=== PATIENT | female | born 2000 | race Caucasian/White ===

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

== ENCOUNTER 2019-02-16 07:30 | Emergency (ER) | payer OTHER ==
[2019-02-16 07:40] VITALS: O2SAT 98
[2019-02-16] MEDS ORDERED: diphenhydrAMINE HCL 50 MG/ML VIAL IV ONE (07:41)
[2019-02-16] MEDS ORDERED: methylPREDNISolone SODIUM SUC 125 MG/2 ML VIAL IV ONE (07:41)
[2019-02-16] MEDS ORDERED: FAMOTIDINE IV PREMIX 20 MG in PREMIX BAG 1 BAG IVPB ONE (07:42)
[2019-02-16] MEDS ORDERED: EPINEPHrine HCL AMP 1 MG/ML AMP SUBCU ONE ×2 (07:42→08:16)
[2019-02-16] MEDS ORDERED: FAMOTIDINE IV PREMIX 50 ML IVPB ONE (07:52)
[2019-02-16] MEDS ORDERED: ONDANSETRON INJ 4 MG/2 ML VIAL ONE (08:00)
[2019-02-16] MEDS ORDERED: ONDANSETRON INJ 4 MG/2 ML VIAL IV ONE (08:01)
--- NOTE | 2019-02-16 08:01 | ED.PDOC ---
History of Present Illness - General Chief Complaint: Allergic Reaction Time Seen by Provider: 02/16/19 07:34 Source: patient - History of Present Illness Initial Comments: 18 y/o F presents to the ED after waking up this am with her face swollen and feeling like it was difficult to swallow. She is currently 39 weeks 3 days and denies any new medications. She currently takes only zofran and thyroid medication. She reports last eating taco soup, but is not aware of anything new or different in that. She denies any new lotions. She has never had a hx of similar episodes in the past and denies a hx of similar sx in her family. Sx currently moderate in severity and nothing the pt has done seems to make sx better or worse. She reports associated nausea and vomiting, which has been normal for her throughout her . Her OB is Dr. Arpit Horton in [place]. Allergies/Adverse Reactions: Allergies NO KNOWN ALLERGY Allergy (Verified 07/09/18 09:58) Home Medications: Ambulatory Orders Levothyroxine Sodium [Synthroid] 175 mcg PO DAILY 12/25/18 Ondansetron Odt [Zofran ODT] 4 mg PO Q4HR PRN #16 tab 12/25/18 Pantoprazole Sodium 40 mg PO DAILY 12/25/18 Review of Systems - Review of Systems Constitutional: Denies: chills, fever EENTM: States: throat swelling, other - facial swelling. Denies: nose congestion Respiratory: Denies: short of breath, wheezing Cardiology: Denies: chest pain, palpitations Gastrointestinal/Abdominal: States: nausea, vomiting. Denies: abdominal pain, diarrhea Genitourinary: States: other - no vaginal bleeding. Denies: dysuria, hematuria Musculoskeletal: Denies: joint pain, muscle pain Skin: Denies: lesions, rash Neurological: Denies: headache, numbness, paresthesia Past Medical History (General) - Patient Medical History Hx Seizures: No Hx Stroke: No Hx Dementia: No Hx Asthma: No Hx of COPD: No Hx Cardiac Disorders: No Hx Congestive Heart Failure: No Hx Pacemaker: No Hx Hypertension: No Hx Thyroid Disease: Yes - Hoshimoto's Hx Diabetes: No Hx Gastroesophageal Reflux: No Hx Renal Disease: No Hx Cancer: No Hx of HIV: No Hx Hepatitis C: No Hx MRSA: No - Vaccination History Hx Tetanus, Diphtheria Vaccination: Yes Hx Influenza Vaccination: No Hx Pneumococcal Vaccination: No - Social History Hx Tobacco Use: Yes Hx Alcohol Use: No Hx Substance Use: No Hx Substance Use Treatment: No Hx Depression: No - Female History Hx Last Menstrual Period: 09/02/16 Patient : Yes Family Medical History - Family History Mother Family History: No Known Living Status: Still Living Physical Exam - Physical Exam General Appearance: Alert Eye Exam: bilateral normal Ears, Nose, Throat: other - edema to the lips, eyelids and tongue. No uvular edema. Tolerating secretions. Neck: full range of motion, supple Respiratory: lungs clear, normal breath sounds, no respiratory distress Cardiovascular/Chest: normal peripheral pulses, no murmur, tachycardia Peripheral Pulses: radial,right: 2+, radial,left: 2+, dorsalis pedis,right: 2+, dorsalis pedis,left: 2+ Gastrointestinal/Abdominal: non tender, other - gravid with fundal height at the xyphoid process. Extremity: normal range of motion, normal inspection Neurologic: no motor/sensory deficits, alert, normal mood/affect, oriented x 3 Skin Exam: normal color, other - no rash Progress - Progress Progress: 02/16/19 07:56 AM Pt has received Epi- feeling like swelling is improving. HR 100, Sats 98% on RA. 8:12 AM Swelling somewhat improved, but still present. Will repeat epi IM. Discussed with pt need for prolonged monitoring and probable transfer to facility with both ICU and OB capability. FHR 138. 08:30 After second IM Epi swelling improved, will continue to monitor while starting transfer process. Pt and family updated on plans and agree. 09:[address] Davis ER physician at [facility], will accept pt transfer. Pt updated on discussions/plans. - Results/Orders Results/Orders: 02/16/19 07:41 IV:Start .ONCE 02/16/19 07:43 Telemetry ONCE Laboratory Results - last 24 hr 02/16/19 02/16/19 08:05 08:05 WBC 11.3 H RBC 4.90 Hgb 13.2 Hct 40.3 MCV 82.2 MCH 27.0 MCHC 32.9 L RDW 13.9 Plt Count 251 MPV 10.2 Absolute Neuts (auto) 7.60 H Absolute Lymphs (auto) 2.60 Absolute Monos (auto) 0.80 Absolute Eos (auto) 0.10 Absolute Basos (auto) 0.10 Neutrophils % 67.9 Lymphocytes % 23.0 Monocytes % 7.4 Eosinophils % 0.9 L Basophils % 0.8 Sodium 138 Potassium 4.0 Chloride 109 Carbon Dioxide 18 L Anion Gap 15.0 BUN 7 Creatinine 0.59 L BUN/Creatinine Ratio 11.9 Random Glucose 90 Serum Osmolality 273.2 L Calcium 8.6 - Consult/PCP Time Called: 08:58 Consult/PCP: Dr. Horton Consult Reason/Comments: Pt OB- recommeds ER to ER transfer to [facility] and he will consult on the pt Departure - Departure Clinical Impression: Angioedema Qualifiers: Encounter type: initial encounter Qualified Code(s): T78.3XXA - Angioneurotic edema, initial encounter Time of Disposition: 08:44 Disposition: Transfer to Hospital Condition: Fair Home Medications: Ambulatory Orders Levothyroxine Sodium [Synthroid] 175 mcg PO DAILY 12/25/18 Ondansetron Odt [Zofran ODT] 4 mg PO Q4HR PRN #16 tab 12/25/18 Pantoprazole Sodium 40 mg PO DAILY 12/25/18 Critical Care Note - Critical Care Note Total Time (mins): 35 Comments: Multiple reassessments, serious medical condition and consultations. Transfer to Outside Facility - Transfer Information Decision to Transfer Date: 02/16/19 Decision to Transfer Time: 08:30 Reason for Transfer: ICU and OB capable facility Accepting Provider:: Dr. Davis Accepting Facility: [place]
[2019-02-16 09:05] VITALS: BP 129/79; TEMP 98.9
== END 2019-02-16 09:32 | disposition short-term general hospital (02) ==
LOC: ER 07:30
DX: O99.89 Other specified diseases and conditions complicating pregnancy, childbirth and the puerperium (principal); T78.3XXA Angioneurotic edema, initial encounter; O21.9 Vomiting of pregnancy, unspecified; O99.283 Endocrine, nutritional and metabolic diseases complicating pregnancy, third trimester; E06.3 Autoimmune thyroiditis; Z87.891 Personal history of nicotine dependence; Z79.899 Other long term (current) drug therapy; Z3A.39 39 weeks gestation of pregnancy
CPT/HCPCS: 80048; 85025; J1200; J2405; J2930; J3490

== ENCOUNTER → 2019-04-07 | Outpatient (CLI) | payer OTHER | LOC: LAB.O 12:12 | PROVIDERS: ATTEND Obstetrics & Gynecology | DX: E03.9 Hypothyroidism, unspecified (principal) ==

== ENCOUNTER → 2020-03-01 | Outpatient (CLI) | payer OTHER | LOC: YCFC.O 12:31 | PROVIDERS: ATTEND Nurse Practitioner Family | DX: Z20.828 Contact with and (suspected) exposure to other viral communicable diseases (principal) ==

== ENCOUNTER 2020-06-03 21:30 | Emergency (ER) | payer SELFPAY ==
--- NOTE | 2020-06-03 21:57 | ED.PDOC ---
History of Present Illness - General Stated Complaint: Vaginal bleeding Time Seen by Provider: 06/03/20 21:56 - History of Present Illness Initial Comments: 2 para 1 abortus 1 female, last menstrual period 23 May 2020 now complaining of heavy vaginal bleeding for the last 3 days. Patient is passing clots. She denies abdominal pain. She is sexually active but does not use contraception. She has not had any lightheadedness dizziness or syncope. Patient did have a miscarriage in October 2019. Timing/Duration: other - 3 days Quality: severe Onset Location: unknown Radiation: none Prior abdominal problems: none Sexual intercourse history: single partner Improving Factors: nothing Worsening Factors: nothing Associated Symptoms: denies symptoms Allergies/Adverse Reactions: Allergies NO KNOWN ALLERGY Allergy (Verified 07/09/18 09:58) Home Medications: Ambulatory Orders Levothyroxine Sodium [Synthroid] 175 mcg PO DAILY 12/25/18 Ondansetron Odt [Zofran ODT] 4 mg PO Q4HR PRN #16 tab 12/25/18 Pantoprazole Sodium 40 mg PO DAILY 12/25/18 Review of Systems - Review of Systems Constitutional: States: no symptoms reported EENTM: States: no symptoms reported Respiratory: States: no symptoms reported Cardiology: States: no symptoms reported Gastrointestinal/Abdominal: States: no symptoms reported Genitourinary: States: see HPI Musculoskeletal: States: no symptoms reported Skin: States: no symptoms reported Neurological: States: no symptoms reported Endocrine: States: no symptoms reported Hematologic/Lymphatic: States: no symptoms reported Past Medical History (General) - Patient Medical History Hx Seizures: No Hx Stroke: No Hx Dementia: No Hx Asthma: No Hx of COPD: No Hx Cardiac Disorders: No Hx Congestive Heart Failure: No Hx Pacemaker: No Hx Hypertension: No Hx Thyroid Disease: Yes - Hoshimoto's Hx Diabetes: No Hx Gastroesophageal Reflux: No Hx Renal Disease: No Hx Cancer: No Hx of HIV: No Hx Hepatitis C: No Hx MRSA: No - Vaccination History Hx Tetanus, Diphtheria Vaccination: Yes Hx Influenza Vaccination: No Hx Pneumococcal Vaccination: No - Social History Hx Tobacco Use: Yes Hx Alcohol Use: No Hx Substance Use: No Hx Substance Use Treatment: No Hx Depression: No - Female History Hx Last Menstrual Period: 09/02/16 Patient : Yes Expected Date of Delivery:: 02/21/19 Family Medical History - Family History Mother Family History: No Known Living Status: Still Living Physical Exam - Physical Exam General Appearance: Alert, Comfortable Eyes, Ears, Nose, Throat Exam: PERRL/EOMI, other - No conjunctival pallor noted Neck: non-tender, full range of motion, supple Cardiovascular/Respiratory: regular rate, rhythm Gastrointestinal/Abdominal: normal bowel sounds, non tender, soft Pelvic Exam: bimanual exam normal, no cerv. motion tender, active bleeding, other - Pelvic examination performed with nurse Cindy present. There was a constant steady moderate ooze of blood from the cervix. Back Exam: normal inspection, no CVA tenderness Extremity: normal range of motion, non-tender, no calf tenderness Neurologic: radial drill operator II-XII nml as tested, no motor/sensory deficits, alert, normal mood/affect, oriented x 3 Skin Exam: normal color, warm/dry Lymphatic: no adenopathy Progress - Progress Progress: 06/04/20 00:36 An IV was ordered but refused by the patient. The patient's solid fiber paster operator, Dr. Arpit Horton, Was consulted by phone at 11:24 PM. He recommended Sprintec Control pills prescribed to stop the bleeding. - Results/Orders Results/Orders: 06/03/20 22:29 Pelvic Exam Assist ONCE Laboratory Results - last 24 hr 06/03/20 06/03/20 22:40 22:40 WBC 11.4 H RBC 4.54 Hgb 12.4 Hct 37.3 MCV 82.3 MCH 27.2 MCHC 33.1 RDW 14.6 H Plt Count 264 MPV 9.3 Absolute Neuts (auto) 7.20 H Absolute Lymphs (auto) 3.30 Absolute Monos (auto) 0.70 Absolute Eos (auto) 0.10 Absolute Basos (auto) 0.10 Neutrophils % 63.2 Lymphocytes % 29.1 Monocytes % 6.3 Eosinophils % 0.7 L Basophils % 0.7 Serum HCG, Qual Negative Vital Signs - 24 hr 06/03/20 06/03/20 22:29 23:15 Temperature 98.8 F 97.8 F Pulse Rate [ 118 H 88 monitor] Respiratory 18 18 Rate Blood Pressure 110/79 117/72 [left] O2 Sat by Pulse 99 97 Oximetry Departure - Departure Clinical Impression: Dysfunctional uterine bleeding Time of Disposition: 23:30 Disposition: Discharge to Home or Self Care Condition: Good Departure Forms: ED Discharge - Pt. Copy Instructions: Bleeding Between Periods Diet: other - Force fluids Activity: other - Rest and avoid heavy exertion Referrals: Arpit Horton MD [Primary Care Provider] - 1-2 Weeks Home Medications: Ambulatory Orders Levothyroxine Sodium [Synthroid] 175 mcg PO DAILY 12/25/18 Ondansetron Odt [Zofran ODT] 4 mg PO Q4HR PRN #16 tab 12/25/18 Pantoprazole Sodium 40 mg PO DAILY 12/25/18 Additional Instructions: If you have worsening bleeding, feel lightheaded like you are going to pass out Then Call Dr. Santos Or go to emergency room in [place]. Comments: Rx: Sprintec 28 day packs, #3, Take 1 pill daily for bleeding. (Handwritten)
[2020-06-03] MEDS ORDERED: SODIUM CHLORIDE 0.9% 1000ML 1,000 ML IVS ONE (23:17)
[2020-06-03 23:26] VITALS: O2SAT 97
[2020-06-04 01:29] VITALS: BP 112/64; TEMP 97
== END 2020-06-03 23:45 | disposition home or self-care (01) ==
LOC: ER 21:30
DX: N93.8 Other specified abnormal uterine and vaginal bleeding (principal); E06.3 Autoimmune thyroiditis; Z87.891 Personal history of nicotine dependence; Z79.899 Other long term (current) drug therapy